=== PATIENT | male | born 1970 | race Two or more races ===

== ENCOUNTER 2025-05-13 16:12 | Inpatient (IN) | payer OTHER ==
[~2025-05-13] VITALS: Ht 182.9 cm; Wt 63.5 kg
[2025-05-13] MEDS ORDERED: DEXTROSE 5 %-0.45 % SOD CHLORD 1,000 ML IV SCH (17:00)
[2025-05-13] MEDS ORDERED: ALBUTEROL SULFATE 3 ML/2.5 MG AMPUL.NEB IH STA (17:07)
[2025-05-13 17:11] VITALS: BP 172/90; O2SAT 96
[2025-05-13] MEDS ORDERED: CLONAZEPAM 1 MG TABLET PO SCH (17:25)
[2025-05-13] MEDS ORDERED: OxyCODONE HCL 5 MG TABLET (ROXICODONE) PO PRN (17:45)
[2025-05-13 18:35] LABS: BASO % 0.4 % (0.1-1.2); EOS # 0.08 (0.04-0.54); EOS % 1.0 % (0.7-7.0); LYMPH # 0.96 (1.18-3.74); LYMPH % 11.7 % (19.3-53.1); MEAN PLATELET VOLUME 10.20 fl (9.4-12.4); MONO # 0.67 (0.24-0.82); MONO % 8.1 % (4.7-12.5); NEUT # 6.45 (1.56-6.13); NEUT % 78.3 % (34.0-71.1); RED CELL DISTRIBUTION WIDTH 16.6 % (11.6-14.4)
[2025-05-13 18:46] LABS: ERYTHROCYTE SEDIMENTATION RATE > 130 mm/hr (0-20)
[2025-05-13 19:01] LABS: INR 1.26
[2025-05-13 19:04] LABS: ABG PH 7.469 (7.35-7.45)
[2025-05-13 19:05] LABS: ABG PO2 68.0 mmHg (80-100); BICARBONATE 28.3 mmol/l (23-25); o2 21 %
[2025-05-13 19:37] LABS: ALT/SGPT 22 U/L (12-78); AST/SGOT 26 U/L (15-37); BILIRUBIN TOTAL 0.56 mg/dL (0.3-1.2); BUN CREA RATIO 18 (7.0-25.0); CREATININE SERUM 1.00 mg/dL (0.70-1.30); GFR 77.30; GLOBULINA 4.1 G/DL (2.4-3.5); GLUCOSE FASTING 129 mg/dL (65-100); LDH 239 U/L (87-241); OSMOLALITY SERUM 277 MOSM/KG (275-295)
[2025-05-13 19:39] LABS: CKMB < 1.0 NG/ML (0.5-3.6)
[2025-05-13] MEDS ORDERED: ACETAMINOPHEN 500 MG GEL..CAP PO SCH (20:00)
[2025-05-13] MEDS ORDERED: PROAIR RESPICL90 MCG (20:46)
[2025-05-13] MEDS ORDERED: PERCOCET 5-3251 EACH (20:46)
[2025-05-13] MEDS ORDERED: RISPERDAL0.5 MG (20:47)
[2025-05-13] MEDS ORDERED: CLONAZEPAM0.125 MG (20:47)
[2025-05-13] MEDS ORDERED: REMERON15 M1 (20:47)
[2025-05-13] MEDS ORDERED: HORIZANT300 MG (20:48)
[2025-05-13] MEDS ORDERED: TEMAZEPAM 15 MG CAPSULE PO SCH (21:00)
[2025-05-13] MEDS ORDERED: PATIENTS OWN MEDICATION (MEDICAMENTO EN PISO) PO SCH (21:00)
[2025-05-13] MEDS ORDERED: RISPERIDONE 1 MG TABLET PO SCH (21:00)
[2025-05-14] VITALS (10 sets, daily range): BP systolic 106–126; BP diastolic 78–87; O2SAT 92–98
[2025-05-14] MEDS ORDERED: ALBUTEROL SULFATE 3 ML/2.5 MG AMPUL.NEB IH SCH
[2025-05-14] MEDS ORDERED: GABAPENTIN 800 MG TABLET PO SCH (01:00)
[2025-05-14] MEDS ORDERED: SERTRALINE HCL 100 MG TABLET PO SCH (09:00)
[2025-05-14] MEDS ORDERED: METHYLPREDNISOLONE SOD SUCC 125 MG VIAL IV STA (13:30)
[2025-05-14] MEDS ORDERED: 0.9 % SODIUM CHLORIDE 1,000 ML IV SCH (16:15)
[2025-05-14] MEDS ORDERED: METHYLPREDNISOLONE SOD SUCC 40 MG VIAL IV SCH (21:00)
[2025-05-15] VITALS (11 sets, daily range): BP systolic 101–148; BP diastolic 77–99; O2SAT 82–95
[2025-05-15] MEDS ORDERED: 0.9 % SODIUM CHLORIDE 1,000 ML IV SCH (09:00)
[2025-05-16 04:09] VITALS: BP 125/95; O2SAT 100
[2025-05-16] MEDS ORDERED: GUAIFENESIN 200 MG/10 ML BLIST.PACK PO SCH (05:04)
[2025-05-16 07:23] LABS: BASO % 0.0 % (0.1-1.2); EOS # 0.00 (0.04-0.54); EOS % 0.0 % (0.7-7.0); LYMPH # 0.40 (1.18-3.74); LYMPH % 3.6 % (19.3-53.1); MEAN PLATELET VOLUME 10.70 fl (9.4-12.4); MONO # 0.22 (0.24-0.82); MONO % 2.0 % (4.7-12.5); NEUT # 10.44 (1.56-6.13); NEUT % 93.6 % (34.0-71.1); RED CELL DISTRIBUTION WIDTH 17.3 % (11.6-14.4)
[2025-05-16 07:32] LABS: ERYTHROCYTE SEDIMENTATION RATE 129 mm/hr (0-20)
[2025-05-16 07:36] VITALS: BP 137/85; O2SAT 100
[2025-05-16 08:10] LABS: ALT/SGPT 21.0 U/L (12-78); AST/SGOT 24.0 U/L (15-37); BILIRUBIN TOTAL 0.44 mg/dL (0.3-1.2); BUN CREA RATIO 18.0 (7.0-25.0); CREATININE SERUM 0.84 mg/dL (0.70-1.30); GFR 94.52; GLOBULINA 4.0 G/DL (2.4-3.5); GLUCOSE FASTING 155.0 mg/dL (65-100); LDH 242.0 U/L (87-241); OSMOLALITY SERUM 287.0 MOSM/KG (275-295)
[2025-05-16 08:45] LABS: ABG PH 7.384 (7.35-7.45); ABG PO2 152.8 mmHg (80-100); BICARBONATE 29.2 mmol/l (23-25); o2 100 %
[2025-05-16 12:14] VITALS: BP 152/92; O2SAT 100
[2025-05-16 15:20] VITALS: BP 147/97; O2SAT 100
[2025-05-16] MEDS ORDERED: OxyCODONE HCL 5 MG TABLET (ROXICODONE) PO PRN (16:30)
[2025-05-16] MEDS ORDERED: MIDAZOLAM HCL 2 MG/2 ML VIAL IV PUSH ONE (17:15)
[2025-05-16] MEDS ORDERED: fentaNYL CITRATE 50 MCG/ML AMPUL IV PUSH ONE ×2 (17:15→20:00)
[2025-05-16 20:00] VITALS: BP 133/76; O2SAT 96
[2025-05-16] MEDS ORDERED: MIRTAZAPINE 15 MG TABLET PO SCH (21:00)
[2025-05-16 23:13] VITALS: BP 133/76; O2SAT 97
[2025-05-17 03:55] VITALS: BP 117/74; O2SAT 99
[2025-05-17 07:02] VITALS: BP 126/87; O2SAT 100
[2025-05-17] MEDS ORDERED: COLCHICINE 0.6 MG TABLET PO SCH (09:00)
[2025-05-17 12:00] VITALS: BP 137/86; O2SAT 96
[2025-05-17 13:48] LABS: BASO % 0.1 % (0.1-1.2); EOS # 0.00 (0.04-0.54); EOS % 0.0 % (0.7-7.0); LYMPH # 0.45 (1.18-3.74); LYMPH % 3.0 % (19.3-53.1); MEAN PLATELET VOLUME 9.80 fl (9.4-12.4); MONO # 0.48 (0.24-0.82); MONO % 3.2 % (4.7-12.5); NEUT # 13.64 (1.56-6.13); NEUT % 92.4 % (34.0-71.1); RED CELL DISTRIBUTION WIDTH 17.1 % (11.6-14.4)
[2025-05-17 14:59] VITALS: BP 131/88; O2SAT 96
[2025-05-17] MEDS ORDERED: ENOXAPARIN SODIUM 40 MG/0.4 ML SYRINGE SUBCUTANEO SCH (17:00)
[2025-05-17 20:00] VITALS: BP 138/80; O2SAT 99
[2025-05-17 20:24] LABS: GLU PLEURAL FLUID 128.0 mg/dl; LDH PLEURAL FLUID 145.0 U/L; TP PLEURAL FLUID 2.8 g/dl
[2025-05-17 20:33] LABS: MONONUCLEAR 77.5 %; POLYMORPHONUCLEAR 22.5 %
[2025-05-17 23:13] VITALS: BP 148/84; O2SAT 97
[2025-05-18 04:00] VITALS: BP 131/91; O2SAT 99
[2025-05-18 07:07] VITALS: BP 143/96; O2SAT 98
[2025-05-18 11:39] VITALS: BP 116/84; O2SAT 98
[2025-05-18] MEDS ORDERED: METHYLPREDNISOLONE SOD SUCC 40 MG VIAL IV SCH ×2 (13:00→21:00)
[2025-05-18 15:26] VITALS: BP 133/90; O2SAT 97
[2025-05-18 20:00] VITALS: BP 109/71; O2SAT 98
[2025-05-18 23:03] VITALS: BP 135/83; O2SAT 100
[2025-05-19 04:09] VITALS: BP 119/91; O2SAT 96
[2025-05-19 06:46] LABS: BASO % 0.1 % (0.1-1.2); EOS # 0.00 (0.04-0.54); EOS % 0.0 % (0.7-7.0); LYMPH # 0.93 (1.18-3.74); LYMPH % 6.9 % (19.3-53.1); MEAN PLATELET VOLUME 9.40 fl (9.4-12.4); MONO # 0.54 (0.24-0.82); MONO % 4.0 % (4.7-12.5); NEUT # 11.84 (1.56-6.13); NEUT % 88.4 % (34.0-71.1); RED CELL DISTRIBUTION WIDTH 16.3 % (11.6-14.4)
[2025-05-19 07:04] LABS: ERYTHROCYTE SEDIMENTATION RATE 62 mm/hr (0-20)
[2025-05-19 07:32] VITALS: BP 111/91; O2SAT 100
[2025-05-19 07:44] LABS: BUN CREA RATIO 30.0 (7.0-25.0); CREATININE SERUM 0.86 mg/dL (0.70-1.30); GFR 91.99; GLUCOSE FASTING 105.0 mg/dL (65-100); LDH 247.0 U/L (87-241); OSMOLALITY SERUM 285.0 MOSM/KG (275-295)
[2025-05-19] MEDS ORDERED: LORazepam 2 MG/ML VIAL IV ONE (08:30)
[2025-05-19] MEDS ORDERED: PREDNISONE 20 MG TABLET PO SCH (09:00)
[2025-05-19 12:04] VITALS: BP 123/93; O2SAT 100
[2025-05-19 15:13] VITALS: O2SAT 96
[2025-05-19 22:00] VITALS: BP 105/81; O2SAT 95
[2025-05-19 23:17] VITALS: BP 95/72; O2SAT 98
[2025-05-20] VITALS (22 sets, daily range): BP systolic 98–129; BP diastolic 70–90; O2SAT 94–100
[2025-05-20] MEDS ORDERED: AMIODARONE HCL 900 MG in DEXTROSE 5 % IN WATER 500 ML IV SCH (00:15)
[2025-05-20] MEDS ORDERED: AMIODARONE HCL 500 ML IV SCH (06:45)
[2025-05-20] MEDS ORDERED: OxyCODONE HCL 5 MG TABLET (ROXICODONE) PO PRN (17:30)
[2025-05-20] MEDS ORDERED: LEVALBUTEROL HCL 1.25 MG/3 ML SOLUTION IH SCH (21:00)
[2025-05-20] MEDS ORDERED: IPRATROPIUM BROMIDE 0.5 MG/2.5 ML AMPUL.NEB IH SCH (21:00)
[2025-05-21] VITALS (12 sets, daily range): BP systolic 104–141; BP diastolic 63–97; O2SAT 90–100
[2025-05-21] MEDS ORDERED: AMIODARONE HCL 200 MG TABLET PO SCH (09:00)
[2025-05-21] MEDS ORDERED: CLONAZEPAM 1 MG TABLET PO SCH (13:00)
[2025-05-21] MEDS ORDERED: PREDNISONE 20 MG TABLET PO SCH (17:00)
[2025-05-21] MEDS ORDERED: TEMAZEPAM 15 MG CAPSULE PO SCH (21:00)
[2025-05-22] VITALS (8 sets, daily range): BP systolic 109–111; BP diastolic 70–75; O2SAT 90–99
[2025-05-22] MEDS ORDERED: ACETAMINOPHEN 500 MG GEL..CAP PO PRN (12:30)
[2025-05-23] VITALS (9 sets, daily range): BP systolic 116–134; BP diastolic 80–85; O2SAT 90–100
[2025-05-23 06:43] LABS: BASO % 0.2 % (0.1-1.2); EOS # 0.00 (0.04-0.54); EOS % 0.0 % (0.7-7.0); LYMPH # 0.57 (1.18-3.74); LYMPH % 4.8 % (19.3-53.1); MEAN PLATELET VOLUME 10.90 fl (9.4-12.4); MONO # 0.43 (0.24-0.82); MONO % 3.6 % (4.7-12.5); NEUT # 10.88 (1.56-6.13); NEUT % 90.6 % (34.0-71.1); RED CELL DISTRIBUTION WIDTH 16.2 % (11.6-14.4)
[2025-05-23 07:04] LABS: ERYTHROCYTE SEDIMENTATION RATE 46 mm/hr (0-20)
[2025-05-23 09:14] LABS: GLUCOSE FASTING 161.0 mg/dL (65-100)
[2025-05-23 09:15] LABS: ALT/SGPT 78.0 U/L (12-78); AST/SGOT 58.0 U/L (15-37); BILIRUBIN TOTAL 0.67 mg/dL (0.3-1.2); BUN CREA RATIO 28.0 (7.0-25.0); CREATININE SERUM 1.23 mg/dL (0.70-1.30); GFR 60.87; GLOBULINA 3.7 G/DL (2.4-3.5); OSMOLALITY SERUM 285.0 MOSM/KG (275-295)
[2025-05-24 01:10] VITALS: BP 126/85; O2SAT 98
[2025-05-24 08:40] VITALS: BP 132/89; O2SAT 100
[2025-05-24 18:20] VITALS: BP 113/81
[2025-05-25 01:05] VITALS: BP 124/82; O2SAT 100
[2025-05-25 08:17] VITALS: BP 115/75; O2SAT 100
[2025-05-25 11:56] LABS: ABG PH 7.455 (7.35-7.45); ABG PO2 95.2 mmHg (80-100); BICARBONATE 33.6 mmol/l (23-25)
[2025-05-25 11:57] LABS: o2 21 %
[2025-05-25 18:51] VITALS: BP 124/83
[2025-05-26 00:52] VITALS: BP 106/72
[2025-05-26 01:25] VITALS: BP 100/70
[2025-05-26 09:02] VITALS: BP 122/89; O2SAT 98
[2025-05-26 17:00] VITALS: BP 111/75; O2SAT 96
[2025-05-27 01:13] VITALS: BP 101/64; O2SAT 99
[2025-05-27] MEDS ORDERED: PREDNISONE 20 MG TABLET PO SCH (09:00)
[2025-05-27] MEDS ORDERED: AMIODARONE HCL200 MG PO (09:19)
[2025-05-27] MEDS ORDERED: COLCHICINE0.6 MG PO (09:20)
[2025-05-27] MEDS ORDERED: CLONAZEPAM1 MG PO (09:21)
[2025-05-27] MEDS ORDERED: GABAPENTIN800 MG PO (09:22)
[2025-05-27] MEDS ORDERED: MIRTAZAPINE15 MG PO (09:23)
[2025-05-27] MEDS ORDERED: PERCOCET 5-3251 EACH PO (09:25)
[2025-05-27] MEDS ORDERED: SERTRALINE HCL100 MG PO (09:26)
[2025-05-27] MEDS ORDERED: RISPERDAL1 MG PO (09:26)
[2025-05-27] MEDS ORDERED: FAMOTIDINE20 MG PO (09:27)
[2025-05-27] MEDS ORDERED: GERI-TUSSI100 MG/5 M PO (09:27)
[2025-05-27] MEDS ORDERED: RESTORIL15 MG PO (09:27)
[2025-05-27] MEDS ORDERED: B Complex PO (09:28)
[2025-05-27] MEDS ORDERED: PREDNISONE20 MG PO (09:28)
[2025-05-27 09:33] VITALS: BP 100/70; O2SAT 96
== END 2025-05-27 10:47 | disposition home or self-care (01) | DRG 315 ==
LOC: SURH 16:12 → ICU 05-15 13:15 → MEDJ 05-21 16:10
PROVIDERS: Internal Medicine; Radiology Vascular & Interventional Radiology; ADMIT Internal Medicine Hematology & Oncology; ATTEND Internal Medicine Hematology & Oncology
PROC: 8E0ZXY6 Isolation (ICD-10-PCS; principal; 2025-05-13)
PROC: BB24YZZ Computerized Tomography (CT Scan) of Bilateral Lungs using Other Contrast (ICD-10-PCS; 2025-05-13)
PROC: B246ZZZ Ultrasonography of Right and Left Heart (ICD-10-PCS; 2025-05-13)
PROC: 3E0F7GC Introduction of Other Therapeutic Substance into Respiratory Tract, Via Natural or Artificial Opening (ICD-10-PCS; 2025-05-13)
PROC: 3E0F7SF Introduction of Other Gas into Respiratory Tract, Via Natural or Artificial Opening (ICD-10-PCS; 2025-05-13)
PROC: 4A12X4Z Monitoring of Cardiac Electrical Activity, External Approach (ICD-10-PCS; 2025-05-14)
PROC: B246ZZZ Ultrasonography of Right and Left Heart (ICD-10-PCS; 2025-05-16)
PROC: 0W9D30Z Drainage of Pericardial Cavity with Drainage Device, Percutaneous Approach (ICD-10-PCS; 2025-05-16)
PROC: 0W9B3ZZ Drainage of Left Pleural Cavity, Percutaneous Approach (ICD-10-PCS; 2025-05-17)
PROC: 30233N1 Transfusion of Nonautologous Red Blood Cells into Peripheral Vein, Percutaneous Approach (ICD-10-PCS; 2025-05-17)
PROC: 0W993ZZ Drainage of Right Pleural Cavity, Percutaneous Approach (ICD-10-PCS; 2025-05-19)
PROC: B246ZZZ Ultrasonography of Right and Left Heart (ICD-10-PCS; 2025-05-21)
PROC: B246ZZZ Ultrasonography of Right and Left Heart (ICD-10-PCS; 2025-05-24)
DX: I31.1 Chronic constrictive pericarditis (principal); C37 Malignant neoplasm of thymus; C78.2 Secondary malignant neoplasm of pleura; C78.7 Secondary malignant neoplasm of liver and intrahepatic bile duct; I48.92 Unspecified atrial flutter; J44.1 Chronic obstructive pulmonary disease with (acute) exacerbation; J90 Pleural effusion, not elsewhere classified; J84.10 Pulmonary fibrosis, unspecified; J47.9 Bronchiectasis, uncomplicated; D64.89 Other specified anemias; D63.0 Anemia in neoplastic disease; F17.211 Nicotine dependence, cigarettes, in remission; Z92.21 Personal history of antineoplastic chemotherapy; Z92.3 Personal history of irradiation

== ENCOUNTER 2025-06-07 19:59 | Inpatient (IN) | payer OTHER ==
[~2025-06-07] VITALS: Ht 165.1 cm; Wt 69.9 kg
[~2025-06-07 19:59] MED LIST: AMIODARONE HCL200 MG PO; B Complex PO; CLONAZEPAM0.125 MG; CLONAZEPAM1 MG PO; COLCHICINE0.6 MG PO; FAMOTIDINE20 MG PO; GABAPENTIN800 MG PO; GERI-TUSSI100 MG/5 M PO; HORIZANT300 MG; MIRTAZAPINE15 MG PO; PERCOCET 5-3251 EACH; PERCOCET 5-3251 EACH PO; PREDNISONE20 MG PO; PROAIR RESPICL90 MCG; REMERON15 M1; RESTORIL15 MG PO; RISPERDAL0.5 MG; RISPERDAL1 MG PO; SERTRALINE HCL100 MG PO
--- NOTE | 2025-06-07 21:16 | NUR ---
SE RECIBE PACIENTE ALERTA Y ORIENTADO X 3 ESFERAS EL CUAL INDICA QUE PRESENTA DIFICULTAD AL RESPIRAR Y PIES CON EDEMA DESDE HACE DOS PRESTON. SE UBICA A PACIENTE EN CAMA 3 DE ICU 2, SE CONECTA A MONITOR CARDIACO Y OXIMETRIA DE PULSO.
[2025-06-07] MEDS ORDERED: 0.9 % SODIUM CHLORIDE 500 ML IV STA (21:29)
--- NOTE | 2025-06-07 21:35 | NUR ---
SE EDUCA A PTE SOBRE TX MEDICO, SE VINNIE MUESTRAS DE LABORATORIO UTILIZANDO MEDIDAS ASEPTICAS. SE COLOCA H/L CARMEN DE EDEMA. SE ADMINISTRAN MEDICAMENTOS DAPHNE ORDEN MEDICA. SE NOTIFICAN ABGS Y RX PENDIENTES A REALIZAR.
[2025-06-07 21:55] LABS: ABG PH 7.434 (7.35-7.45); ABG PO2 68.3 mmHg (80-100); BICARBONATE 29.0 mmol/l (23-25)
[2025-06-07 21:55] LABS: BASO % 0.0 % (0.1-1.2); EOS # 0.00 (0.04-0.54); EOS % 0.0 % (0.7-7.0); LYMPH # 0.28 (1.18-3.74); LYMPH % 3.8 % (19.3-53.1); MEAN PLATELET VOLUME 11.40 fl (9.4-12.4); MONO # 0.05 (0.24-0.82); MONO % 0.7 % (4.7-12.5); NEUT # 6.94 (1.56-6.13); NEUT % 94.7 % (34.0-71.1); RED CELL DISTRIBUTION WIDTH 18.0 % (11.6-14.4)
[2025-06-07 22:04] LABS: ERYTHROCYTE SEDIMENTATION RATE 125 mm/hr (0-20)
--- NOTE | 2025-06-07 22:10 | NUR ---
PTE REHUSA OSPINA, SE JOIE URINAL A PTE Y SE ORIENTA.
[2025-06-07 22:17] LABS: D DIMER 1.63 MG/L
[2025-06-07 22:27] LABS: INR 1.14
[2025-06-07 22:40] LABS: ALT/SGPT 35.0 U/L (12-78); AST/SGOT 29.0 U/L (15-37); BILIRUBIN TOTAL 0.28 mg/dL (0.3-1.2); BUN CREA RATIO 15.0 (7.0-25.0); CREATININE SERUM 1.04 mg/dL (0.70-1.30); GFR 73.87; GLOBULINA 4.2 G/DL (2.4-3.5); OSMOLALITY SERUM 287.0 MOSM/KG (275-295)
[2025-06-07 22:41] LABS: GLUCOSE FASTING 246.0 mg/dL (65-100)
[2025-06-07] MEDS ORDERED: CLONAZEPAM 1 MG TABLET PO SCH (22:56)
[2025-06-07] MEDS ORDERED: GABAPENTIN 800 MG TABLET PO SCH (22:56)
[2025-06-07] MEDS ORDERED: ONDANSETRON HCL 4 MG in 0.9 % SODIUM CHLORIDE 50 ML IV PRN (23:00)
[2025-06-07] MEDS ORDERED: 0.9 % SODIUM CHLORIDE 1,000 ML IV SCH (23:00)
[2025-06-07] MEDS ORDERED: ACETAMINOPHEN 500 MG GEL..CAP PO PRN (23:00)
[2025-06-07] MEDS ORDERED: OxyCODONE HCL 5 MG TABLET (ROXICODONE) PO PRN (23:00)
[2025-06-07 23:14] LABS: o2 21 %
[2025-06-08] VITALS (14 sets, daily range): BP systolic 84–140; BP diastolic 61–92; O2SAT 91–99
[2025-06-08 00:09] LABS: URINE APPEARANCE Clear; URINE BILIRRUBIN Negative (NEGATIVE); URINE BLOOD Negative; URINE COLOR Yellow; URINE GLUCOSE Negative (NEGATIVE); URINE KETONE Negative (NEGATIVE); URINE LEUKOCYTE Negative; URINE NITRATE Negative; URINE PROTEIN Negative (NEGATIVE); URINE UROBILINOGEN 0.2 E.U./dl
[2025-06-08 00:13] LABS: URINE BACTERIA 4.7 uL (0.0-1933)
[2025-06-08 00:30] LABS: URINE CAST 0.29 uL (0.0-1.40); URINE EPITHELIAL CELLS 0.4 uL (0.0-38.8); URINE RBC 0.8 uL (0.0-20.8); URINE WBC 0.3 uL (0.0-23.2)
[2025-06-08] MEDS ORDERED: IPRATROPIUM BROMIDE 0.5 MG/2.5 ML AMPUL.NEB IH SCH (01:00)
[2025-06-08] MEDS ORDERED: IPRATROPIUM BROMIDE 0.5 MG/2.5 ML AMPUL.NEB IH ONE (01:41)
[2025-06-08 02:12] LABS: COCAINE NEGATIVE (NEGATIVE); METHADONE NEGATIVE (NEGATIVE); OPIATES NEGATIVE (NEGATIVE); THC ( Cannabinoids) POSITIVE (NEGATIVE)
[2025-06-08] MEDS ORDERED: SERTRALINE HCL 100 MG TABLET PO SCH (09:00)
[2025-06-08] MEDS ORDERED: FAMOTIDINE/PF 20 MG in 0.9 % SODIUM CHLORIDE 8 ML IV PUSH SCH (09:00)
[2025-06-08] MEDS ORDERED: CLONAZEPAM 1 MG TABLET PO SCH (13:44)
[2025-06-08] MEDS ORDERED: DEXTROSE 50 % IN WATER 0.5 G/ML VIAL IV PRN (14:15)
[2025-06-08] MEDS ORDERED: INSULIN LISPRO 1,000 UNIT/10 ML UNITS SUBCUTANEO PRN (14:15)
[2025-06-08] MEDS ORDERED: TEMAZEPAM 15 MG CAPSULE PO SCH (21:00)
[2025-06-08] MEDS ORDERED: RISPERIDONE 1 MG TABLET PO SCH (21:00)
[2025-06-08] MEDS ORDERED: HYDROCODONE/CHLORPHEN P-STIREX 5 ML ML PO SCH (21:32)
[2025-06-09 00:24] VITALS: BP 104/73; O2SAT 100
[2025-06-09 02:00] VITALS: BP 81/51
[2025-06-09 03:12] VITALS: BP 143/94; O2SAT 100
[2025-06-09 04:00] VITALS: BP 110/79; O2SAT 93
[2025-06-09 06:05] LABS: BASO % 0.2 % (0.1-1.2); EOS # 0.05 (0.04-0.54); EOS % 0.9 % (0.7-7.0); LYMPH # 0.84 (1.18-3.74); LYMPH % 14.3 % (19.3-53.1); MEAN PLATELET VOLUME 10.30 fl (9.4-12.4); MONO # 0.32 (0.24-0.82); MONO % 5.4 % (4.7-12.5); NEUT # 4.64 (1.56-6.13); NEUT % 78.9 % (34.0-71.1); RED CELL DISTRIBUTION WIDTH 18.4 % (11.6-14.4)
[2025-06-09 06:45] LABS: ALT/SGPT 27.0 U/L (12-78); AST/SGOT 24.0 U/L (15-37); BILIRUBIN TOTAL 0.33 mg/dL (0.3-1.2); BUN CREA RATIO 19.0 (7.0-25.0); CREATININE SERUM 0.88 mg/dL (0.70-1.30); GFR 89.58; GLOBULINA 3.3 G/DL (2.4-3.5); GLUCOSE FASTING 73.0 mg/dL (65-100); OSMOLALITY SERUM 281.0 MOSM/KG (275-295)
[2025-06-09 07:00] VITALS: BP 110/79; O2SAT 100
[2025-06-09 12:00] VITALS: BP 121/88; O2SAT 100
[2025-06-09 12:47] LABS: COVID-19 AG NEGATIVE (NEGATIVE)
== END 2025-06-09 14:20 | disposition designated cancer center or children's hospital (05) | DRG 187 ==
LOC: ER 19:59 → ICU-2 22:55 → ICU 06-09 03:17
PROVIDERS: Internal Medicine; ADMIT Internal Medicine; ATTEND Internal Medicine
PROC: BB24ZZZ Computerized Tomography (CT Scan) of Bilateral Lungs (ICD-10-PCS; principal; 2025-06-07)
PROC: B246ZZZ Ultrasonography of Right and Left Heart (ICD-10-PCS; 2025-06-07)
PROC: 3E0F7GC Introduction of Other Therapeutic Substance into Respiratory Tract, Via Natural or Artificial Opening (ICD-10-PCS; 2025-06-08)
DX: J90 Pleural effusion, not elsewhere classified (principal); I31.39 Other pericardial effusion (noninflammatory)

== ENCOUNTER 2025-08-13 12:22 | Inpatient (IN) | payer OTHER ==
[~2025-08-13] VITALS: Ht 167.6 cm; Wt 63.5 kg
--- NOTE | 2025-08-13 12:44 | NUR ---
PACIENTE ALERTA Y ORIENTADO X3. REFIERE 2 PRESTON CON VOMITOS, DOLOR ABDOMINAL LADO IZQ Y DEBILIDAD. HOY VOMITOS X 3.
[2025-08-13] MEDS ORDERED: MORPHINE SULFATE 2 MG/ML SYRINGE IV ONE (14:00)
[2025-08-13] MEDS ORDERED: FAMOtidine 10 MG/ML (4ML VIAL) IV PUSH ONE (14:00)
[2025-08-13] MEDS ORDERED: ONDANSETRON HCL 2 MG/ML VIAL IV ONE (14:00)
[2025-08-13] MEDS ORDERED: FAMOTIDINE/PF 20 MG/2 ML VIAL ONE (14:34)
[2025-08-13] MEDS ORDERED: ONDANSETRON HCL 2 MG/ML VIAL ONE (14:34)
[2025-08-13 15:56] LABS: BASO % 0.2 % (0.1-1.2); EOS # 0.07 (0.04-0.54); EOS % 0.9 % (0.7-7.0); LYMPH # 0.86 (1.18-3.74); LYMPH % 10.6 % (19.3-53.1); MEAN PLATELET VOLUME 9.70 fl (9.4-12.4); MONO # 0.51 (0.24-0.82); MONO % 6.3 % (4.7-12.5); NEUT # 6.62 (1.56-6.13); NEUT % 81.6 % (34.0-71.1); RED CELL DISTRIBUTION WIDTH 16.3 % (11.6-14.4)
[2025-08-13 16:22] LABS: URINE APPEARANCE Clear; URINE BILIRRUBIN Negative (NEGATIVE); URINE BLOOD Negative; URINE COLOR Yellow; URINE GLUCOSE Negative (NEGATIVE); URINE KETONE Negative (NEGATIVE); URINE LEUKOCYTE Negative; URINE NITRATE Negative; URINE PROTEIN Negative (NEGATIVE); URINE UROBILINOGEN 1.0 E.U./dl
--- NOTE | 2025-08-13 16:24 | NUR ---
SE REALIZA LAB Y SE ADMINISTRA TX DAPHNE ORDEN MEDICA BAJO MEDIDAS ASEPTICAS. SE ORIENTA PTE QUIEN REFIERE ENTENDER Y ACEPTAR
[2025-08-13 16:26] LABS: URINE BACTERIA 8.3 uL (0.0-1933); URINE EPITHELIAL CELLS 2.4 uL (0.0-38.8); URINE WBC 1.8 uL (0.0-23.2)
[2025-08-13 16:32] LABS: ALT/SGPT 25.0 U/L (12-78); AST/SGOT 39.0 U/L (15-37); BILIRUBIN TOTAL 0.46 mg/dL (0.3-1.2); BUN CREA RATIO 9.0 (7.0-25.0); CREATININE SERUM 0.86 mg/dL (0.70-1.30); GFR 91.99; GLOBULINA 5.9 G/DL (2.4-3.5); GLUCOSE FASTING 107.0 mg/dL (65-100); OSMOLALITY SERUM 276.0 MOSM/KG (275-295)
[2025-08-13] MEDS ORDERED: PIPERACILLIN/TAZOBACTAM SODIUM 3.375 GM VIAL IV ONE ×2 (16:45→21:44)
[2025-08-13 17:10] LABS: URINE CAST 0.00 uL (0.0-1.40); URINE RBC 0.7 uL (0.0-20.8)
[2025-08-13] MEDS ORDERED: CLONAZEPAM 1 MG TABLET PO SCH (17:45)
[2025-08-13] MEDS ORDERED: OxyCODONE HCL ER 10MG TAB (OxyCONTIN) PO PRN (17:45)
[2025-08-13] MEDS ORDERED: GABAPENTIN 800 MG TABLET PO SCH (17:46)
[2025-08-13] MEDS ORDERED: ONDANSETRON HCL 4 MG in 0.9 % SODIUM CHLORIDE 50 ML IV PRN (20:15)
[2025-08-13] MEDS ORDERED: ACETAMINOPHEN 325 MG TABLET PO PRN (20:15)
[2025-08-13] MEDS ORDERED: TEMAZEPAM 15 MG CAPSULE PO SCH (21:00)
[2025-08-13] MEDS ORDERED: RISPERIDONE 1 MG TABLET PO SCH (21:00)
[2025-08-14 05:00] VITALS: BP 110/77; O2SAT 95
[2025-08-14 08:53] VITALS: BP 110/75; O2SAT 96
[2025-08-14] MEDS ORDERED: SERTRALINE HCL 100 MG TABLET PO SCH (09:00)
[2025-08-14] MEDS ORDERED: ACETAMINOPHEN 500 MG GEL..CAP PO PRN (09:45)
[2025-08-14] MEDS ORDERED: OxyCODONE HCL 5 MG TABLET (ROXICODONE) PO PRN (10:15)
[2025-08-14] MEDS ORDERED: PANTOPRAZOLE SODIUM 40 MG/VIAL VIAL IV SCH (12:00)
[2025-08-14] MEDS ORDERED: ALBUTEROL SULFATE 3 ML/2.5 MG AMPUL.NEB IH STA (18:01)
[2025-08-14 18:08] VITALS: BP 103/72
[2025-08-14] MEDS ORDERED: ALBUTEROL SULFATE 3 ML/2.5 MG AMPUL.NEB IH SCH (21:00)
[2025-08-15 02:51] VITALS: BP 108/76; O2SAT 99
[2025-08-15 09:12] VITALS: BP 103/73; O2SAT 99
[2025-08-15 13:56] LABS: MONONUCLEAR 89.3 %; POLYMORPHONUCLEAR 10.7 %
[2025-08-15 15:06] LABS: GLU PLEURAL FLUID 120.0 mg/dl; LDH PLEURAL FLUID 442.0 U/L; TP PLEURAL FLUID 5.1 g/dl
[2025-08-15 20:55] VITALS: BP 106/73; O2SAT 100
[2025-08-15] MEDS ORDERED: COLCHICINE 0.6 MG TABLET PO SCH (21:00)
[2025-08-16 01:07] VITALS: BP 90/60; O2SAT 99
[2025-08-16 10:06] VITALS: BP 98/70; O2SAT 96
[2025-08-16] MEDS ORDERED: OxyCODONE HCL ER 10MG TAB (OxyCONTIN) PO PRN (11:30)
[2025-08-16] MEDS ORDERED: OxyCODONE HCL 5 MG TABLET (ROXICODONE) PO PRN (11:30)
[2025-08-16 19:05] VITALS: BP 102/71; O2SAT 100
[2025-08-17 03:29] VITALS: BP 96/64; O2SAT 99
[2025-08-17 10:42] VITALS: BP 117/76; O2SAT 97
== END 2025-08-17 10:49 | disposition home or self-care (01) | DRG 844 ==
LOC: ER 12:22 → MEDJ 20:08
PROVIDERS: General Practice; ADMIT Internal Medicine; ATTEND Internal Medicine
PROC: BW21ZZZ Computerized Tomography (CT Scan) of Abdomen and Pelvis (ICD-10-PCS; principal; 2025-08-13)
PROC: B246ZZZ Ultrasonography of Right and Left Heart (ICD-10-PCS; 2025-08-14)
PROC: 3E0F7GC Introduction of Other Therapeutic Substance into Respiratory Tract, Via Natural or Artificial Opening (ICD-10-PCS; 2025-08-14)
DX: C37 Malignant neoplasm of thymus (principal); J91.0 Malignant pleural effusion; K80.20 Calculus of gallbladder without cholecystitis without obstruction; D63.0 Anemia in neoplastic disease; Z87.891 Personal history of nicotine dependence